=== PATIENT | female | born 2000 | race Caucasian/White ===

== ENCOUNTER 2019-10-08 12:56 | Emergency (ER) | payer BC ==
[~2019-10-08] VITALS: Ht 170.2 cm; Wt 81.8 kg
[2019-10-08 13:00] VITALS: BP 120/86; TEMP 99.1
[2019-10-08] MEDS ORDERED: CRUTCHES MC (14:44)
[2019-10-08 15:31] VITALS: PULSE 76
== END 2019-10-08 15:32 | disposition home or self-care (01) ==
LOC: COL.ER 12:56
DX: S92.342A Displaced fracture of fourth metatarsal bone, left foot, initial encounter for closed fracture (principal); S92.242A Displaced fracture of medial cuneiform of left foot, initial encounter for closed fracture; W19.XXXA Unspecified fall, initial encounter; Y92.89 Other specified places as the place of occurrence of the external cause
CPT/HCPCS: Q4041

== ENCOUNTER 2020-04-18 20:15 | Emergency (ER) | payer BC ==
[~2020-04-18] VITALS: Ht 170.2 cm; Wt 81.8 kg
[~2020-04-18 20:15] MED LIST: CRUTCHES MC
[2020-04-18 21:06] VITALS: TEMP 98
[2020-04-18 22:04] LABS: BASO % 0.5 % (0.0-2.0); EOS # 0.1 (0.0-0.7); EOS % 0.9 % (0-4.0); GRAN # 4.1 (1.4-6.5); GRAN % 50.2 % (42.2-75.2); HEMOGLOBIN 13.7 g/dl (12.0-15.0); LYMPH # 3.4 (1.2-3.4); LYMPH % 41.8 % (20.0-51.0); MEAN CELL VOLUME 91 fl (80.0-95.0); MEAN CORPUSCULAR HEMOGLOBIN 31 pg (26.0-32.0); MEAN CORPUSCULAR HGB CONC 34 g/dl (33.0-37.0); MEAN PLATELET VOLUME 9.9 fl (7.4-10.4); MONO # 0.5 (0.1-0.6); MONO % 6.4 % (1.7-9.3); PLATELET COUNT 305 K/mm3 (130-400); RED BLOOD COUNT 4.38 M/mm3 (4.10-5.30); REDCELL DISTRIBUTION WIDTH-CV 11.8 % (11.5-14.5)
[2020-04-18 22:07] LABS: MUCOUS Present /lpf; PH 9 (5-8); SQUAMOUS EPITHELIAL 0-2 /hpf; URINE APPEARANCE Clear; URINE BACTERIA Rare /hpf; URINE BILIRUBIN Negative (NEGATIVE); URINE BLOOD Negative (NEGATIVE); URINE COLOR Yellow; URINE GLUCOSE Negative (NEGATIVE); URINE KETONE Negative (NEGATIVE); URINE LEUKOCYTE ESTERASE Negative (NEGATIVE); URINE NITRATE Negative (NEGATIVE); URINE PROTEIN(semi-quant) Negative (NEGATIVE); URINE RBC 0-2 /hpf; URINE WBC 0-2 /hpf
[2020-04-18 22:14] LABS: COLLECTION METHOD CLEAN CATCH
[2020-04-18 22:16] LABS: ALBUMIN 4.1 gm/dL (3.5-5.0); BILIRUBIN,TOTAL 0.5 mg/dL (0.0-1.0); CALCIUM 9.3 mg/dL (8.4-10.2); CREATININE, serum 0.8 (0.52-1.25); POTASSIUM 3.7 mmol/L (3.4-5.0)
[2020-04-18] MEDS ORDERED: ZOFRAN ODT4 MG PO (23:12)
[2020-04-18] MEDS ORDERED: PEPCID 20MG TAB20 MG PO (23:13)
[2020-04-19 00:06] VITALS: BP 127/76; PULSE 91
== END 2020-04-19 00:19 | disposition home or self-care (01) ==
LOC: COL.ER 20:15
PROVIDERS: Emergency Medicine
DX: R10.9 Unspecified abdominal pain (principal); R19.7 Diarrhea, unspecified; R11.0 Nausea; Z97.5 Presence of (intrauterine) contraceptive device; Z32.02 Encounter for pregnancy test, result negative
CPT/HCPCS: J2405; J7030